=== PATIENT | male | born 1955 | race Caucasian/White ===

== ENCOUNTER → 2017-01-22 11:28 | Outpatient (CLI) | payer MEDICAID | END | disposition home or self-care (01) | LOC: D.LAB 11:28 | DX: M25.551 Pain in right hip (principal) ==

== ENCOUNTER → 2017-03-29 13:08 | Outpatient (CLI) | payer MEDICAID | END | disposition home or self-care (01) | LOC: D.MRI 13:08 | DX: M25.551 Pain in right hip (principal) ==

== ENCOUNTER 2017-04-15 05:08 | Day surgery (SDC) | payer MEDICAID ==
[2017-04-15 06:26] VITALS: BP 123/73; BMI 25.8
--- NOTE | 2017-04-15 09:22 | NUR ---
0920--IV DC'D, PT UP TO DRESS AT THIS TIME. CARROLL JACOBSON
--- NOTE | 2017-04-15 09:30 | NUR ---
0930--DISCHARGE INSTRUCTIONS GIVEN, PT VERBALIZES UNDERSTANDING. PT OFF UNIT VIA [facility]. CARROLL JACOBSON
--- NOTE | 2017-04-19 13:11 | OP ---
PATIENT NAME: SAIMA VERMA III MEDICAL RECORD: [id number] :51 LOCATION:D.OPS ADMISSION DATE: SURGEON: RADU BEJARANO MD DATE OF OPERATION: 04/15/2017 PREOPERATIVE DIAGNOSES: 1. Arthritis of the right hip. 2. Trochanteric bursitis of the right hip. POSTOPERATIVE DIAGNOSES: 1. Arthritis of the right hip. 2. Trochanteric bursitis of the right hip. PROCEDURE: 1. Fluoroscopic-guided right hip injection under TIVA anesthesia. 2. Injection into the greater trochanter. SURGEON: Radu Bejarano MD ANESTHESIA: General. INTRAOPERATIVE COMPLICATIONS: None. SUMMARY OF PATHOLOGIC FINDINGS: The patient was found to have mild to moderate arthritis consistent with the preoperative diagnosis and the patient had known preclinical trochanteric bursitis. OPERATIVE SUMMARY IN DETAIL: After obtaining the appropriate preoperative orthopedic surgery consent as well as anesthetic consultation, evaluation and clearance, the patient was brought to the operating room and placed on operating table in supine position. After adequate TIVA anesthesia was administered, the right hip was prepped and draped in routine sterile fashion. An 18-gauge needle was inserted into the hip capsule. A small amount of Isovue was utilized to assure the tip in the appropriate position and then the combination of 40 cc of Depo-Medrol and 7 cc of 0.25% Marcaine were injected into the hip. This was withdrawn. Bandage was applied. Next, under fluoroscopic guidance, a second 18-gauge needle was directed into the lateral trochanteric area where the trochanteric bursa resides and again a 7cc of 0.25% Marcaine with 40 mg Depo-Medrol were injected into this area as well. Needle tip was withdrawn. Bandage was applied. The patient was awakened, taken back to the outpatient in stable condition. 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
== END 2017-04-15 09:30 | disposition home or self-care (01) ==
LOC: D.OPS 05:08 → D.PAN 07:30 → D.OPS 07:30
DX: M25.551 Pain in right hip (principal); M70.61 Trochanteric bursitis, right hip; M16.11 Unilateral primary osteoarthritis, right hip; K21.9 Gastro-esophageal reflux disease without esophagitis; Z01.812 Encounter for preprocedural laboratory examination

== ENCOUNTER → 2017-05-05 13:39 | Outpatient (CLI) | payer MEDICAID ==
[2017-04-15 06:26] VITALS: BMI 25.8
== END | disposition home or self-care (01) ==
LOC: D.MRI 13:39
DX: M54.16 Radiculopathy, lumbar region (principal)

== ENCOUNTER → 2017-08-09 12:56 | Outpatient (CLI) | payer BC | END | disposition home or self-care (01) | LOC: D.MRI 12:56 | DX: M54.16 Radiculopathy, lumbar region (principal) ==

== ENCOUNTER → 2018-07-15 10:46 | Outpatient (CLI) | payer OTHER | END | disposition home or self-care (01) | LOC: D.MRI 07-01 13:00 | DX: G20 Parkinson's disease (principal) ==

== ENCOUNTER → 2018-07-25 12:33 | Outpatient (CLI) | payer MEDICARE | END | disposition home or self-care (01) | LOC: D.RAD 12:33 | DX: R13.12 Dysphagia, oropharyngeal phase (principal) ==